=== PATIENT | female | born 1995 | race Caucasian/White ===

== ENCOUNTER 2017-02-06 10:56 | Inpatient (IN) | payer MEDICAID ==
[2017-02-06] MEDS ORDERED: RINGERS SOLUTION,LACTATED 1,000 ML IV PRN ×2 (11:24)
[2017-02-06] MEDS ORDERED: RINGERS SOLUTION,LACTATED 300 ML IV ONE (11:24)
[2017-02-06] MEDS ORDERED: OXYTOCIN/NORMAL SALINE 20 UNIT/1,000 ML RTUINJ IV PRN ×2 (11:24→12:15)
[2017-02-06] MEDS ORDERED: OXYTOCIN/NORMAL SALINE 20 UNIT/1,000 ML RTUINJ ONE (11:28)
[2017-02-06] MEDS ORDERED: OXYTOCIN 10 UNIT/ML VIAL ONE (11:28)
[2017-02-06] MEDS ORDERED: MISOPROSTOL 0.2 MG TABLET ONE (11:28)
[2017-02-06] MEDS ORDERED: LIDOCAINE 1% INJ-PF (10 MG/ML) 30 ML SDV ONE (11:28)
[2017-02-06] MEDS ORDERED: PENICILLIN G-K 5 MILLION UNIT VIAL ONE (11:32)
[2017-02-06 11:46] LABS: APPEARANCE,URINE CLEAR; BILIRUBIN,URINE NEGATIVE (NEGATIVE); GLUCOSE, URINE NEGATIVE (NEGATIVE); KETONES,URINE NEGATIVE (NEGATIVE); LEUKOCYTE ESTERASE,URINE NEGATIVE (NEGATIVE); NITRITE,URINE NEGATIVE (NEGATIVE); PROTEIN,URINE NEGATIVE (NEGATIVE); URINE SPECIFIC GRAVITY 1.011; UROBILINOGEN,URINE NEGATIVE mg/dL (<2.0)
[2017-02-06 11:56] LABS: ABSOLUTE BASOPHILS # (AUTO) 0.1 10^3/uL (0.0-0.2); ABSOLUTE EOSINOPHILS # (AUTO) 0.1 10^3/uL (0.0-0.6); ABSOLUTE LYMPHOCYTES (AUTO) 2.1 10^3/uL (0.5-4.7); ABSOLUTE MONOCYTES (AUTO) 0.8 10^3/uL (0.1-1.4); ABSOLUTE NEUT (AUTO) 9.8 10^3/uL (1.7-8.2); BASOPHILS % (AUTO) 0.6 % (0-2); EOSINOPHILS % (AUTO) 0.9 % (0-6); HEMATOCRIT 34.5 % (36.0-47.0); HEMOGLOBIN 12.2 g/dL (12.0-15.5); HGB HCT DIFFERENCE 2.1; LYMPHOCYTES % (AUTO) 16.2 % (13-45); MEAN CORPUSCULAR HEMOGLOBIN 30.4 pg (27.0-33.4); MEAN CORPUSCULAR HGB CONC 35.3 g/dL (32.0-36.0); MEAN CORPUSCULAR VOLUME 86 fl (80-97); MONOCYTES % (AUTO) 5.9 % (3-13); RED BLOOD COUNT 4.01 10^6/uL (3.72-5.28); RED CELL DISTRIBUTION WIDTH 13.7 % (11.5-14.0); SEGMENTED NEUTROPHILS % (AUTO) 76.4 % (42-78); WHITE BLOOD COUNT 12.8 10^3/uL (4.0-10.5)
[2017-02-06 12:08] LABS: URINE BARBITURATES SCREEN NEGATIVE; URINE METHADONE SCREEN NEGATIVE; URINE OPIATES LOW NEGATIVE; URINE PHENCYCLIDINE SCREEN NEGATIVE
[2017-02-06] MEDS ORDERED: OXYCODONE-ACETAMINOPHEN 5-325 MG TABLET ONE (12:10)
[2017-02-06] MEDS ORDERED: DIPH/PERTUSS(ACELL)/TETANUS VAC/PF 0.5 ML SYR (>=10YO) IM PRN (12:15)
[2017-02-06] MEDS ORDERED: ACETAMINOPHEN WITH CODEINE #3 TABLET PO PRN (12:15)
[2017-02-06] MEDS ORDERED: PSEUDOEPHEDRINE HCL 30 MG TABLET PO PRN (12:15)
[2017-02-06] MEDS ORDERED: MISOPROSTOL 0.2 MG TABLET PR ONE (12:15)
[2017-02-06] MEDS ORDERED: DIPHENHYDRAMINE HCL 25 MG CAPSULE PO PRN (12:15)
[2017-02-06] MEDS ORDERED: PROMETHAZINE HCL INJ 25 MG/1 ML VIAL IV PRN (12:15)
[2017-02-06] MEDS ORDERED: PROMETHAZINE HCL 25 MG SUPP.RECT PR PRN (12:15)
[2017-02-06] MEDS ORDERED: GLYCERIN/WITCH HAZEL LEAF 1 EACH MED..PAD TP PRN (12:15)
[2017-02-06] MEDS ORDERED: PROMETHAZINE HCL 25 MG TABLET PO PRN (12:15)
[2017-02-06] MEDS ORDERED: ACETAMINOPHEN 650 MG SUPP.RECT PR PRN (12:15)
[2017-02-06] MEDS ORDERED: BENZOCAINE/MENTHOL AEROSOL SPRAY 56 ML TOP PRN (12:15)
[2017-02-06] MEDS ORDERED: MAGNESIUM HYDROXIDE SUSP 30 ML UDCUP PO PRN (12:15)
[2017-02-06] MEDS ORDERED: NA PHOS,M-B/NA PHOS,DI-BA (ADULT) 133 ML ENEMA PR PRN (12:15)
[2017-02-06] MEDS ORDERED: MEASLES,MUMPS&RUBELLA VACC/PF 0.5 ML VIAL SUBCUT PRN (12:15)
[2017-02-06] MEDS ORDERED: DIBUCAINE 1% OINTMENT 28 GM TP PRN (12:15)
[2017-02-06] MEDS: IBUPROFEN 800 MG TABLET PO SCH ×2 (13:41→22:02)
[2017-02-06] MEDS ORDERED: IBUPROFEN 800 MG TABLET ONE (13:43)
[2017-02-06] MEDS ORDERED: ENOXAPARIN SODIUM INJ 40 MG/0.4 ML DISP.SYRIN SUBCUT ONE (14:00)
[2017-02-06 14:01] LABS: PROTHROMBIN TIME 13.7 SEC (11.4-15.4)
[2017-02-06 14:02] LABS: PARTIAL THROMBOPLASTIN TIME 26.5 SEC (23.5-35.8)
[2017-02-06 14:13] LABS: CREATININE RESULT 0.53 mg/dL (0.52-1.25)
--- NOTE | 2017-02-06 14:15 | Admission Physical ---
Datetime Report Generated by CPN: 02/06/2017 14:15 CURRENT ADMISSION Hx Assessment: The History has been Reviewed and is Current Chief Complaint: Uterine Contractions Indication for Induction: Not Applicable Admit Plan: Admit to Unit; Initiate Labor Protocol ALLERGIES Medication Allergies: No Medication Allergies: No Known Allergies (02/06/2017) Medication Allergies: No Known Allergies (02/10/2016) Latex: No Latex Allergies Food Allergies: none Environmental Allergies: none OBSTETRICAL HISTORY EDC: 02/22/2017 00:00 : 4 Para: 3 Term: 0 : 3 SAB: 0 IAB: 0 Ectopic: 0 Livin Cesareans: 0 VBACs: 0 Multiple Births: 0 Gestational Diabetes: No Rh Sensitization: No Incompetent Cervix: No BARB: No Infertility: No ART Treatment: No Uterine Anomaly: No IUGR: No Hx Previous C/S: No Macrosomia: No Hx Loss/Stillborn: No PIH: No Hx : No Placenta Previa/Abruption: No Depression/PP Depression: Yes PTL/PROM: Yes Post Hemorrhage: Yes Current Procedures: Ultrasound; NST Obstetrical History Comments: Pt states all pregnancies were G3-PPH with no transfusion G4- current SEE RECORDS Alcohol: No Marijuana : No Cocaine: No Other Illicit Drugs: No Cigarettes: Current Everyday Smoker. [id number] Cigarette Frequency: > 10 per day Advised to Stop: Yes MEDICAL HISTORY Diabetes: No Blood Transfusion: No Pulmonary Disease (Asthma, TB): No Breast Disease: No Hypertension: No Help Desk Support Surgery: No Heart Disease: No Hosp/Surgery: Yes Autoimmune Disorder: No Anesthetic Complications: No Kidney Disease: No Abnormal Pap Smear: No Neuro/Epilepsy: No Psychiatric Disorders: No Other Medical Diseases: Yes Hepatitis/Liver Disease: No Significant Family History: No Varicosities/Phlebitis: No Trauma/Violence : No Thyroid Dysfunction: No Medical History Comments: lymphedema, fibromyalgia, clotting disorder, anxiety and depression on alta 2013 surgery for plates and screws in right tib/fib INFECTIOUS HISTORY Gonorrhea: No Genital Herpes: No Chlamydia: No Tuberculosis: No Syphilis: No Hepatitis: No HIV/AIDS Exposure: No Rash or Viral Illness: No HPV: No PHYSICAL EXAM General: Normal HEENT: Normal Neurologic: Normal Thyroid: Normal Heart: Normal Lungs: Normal Breast: Deferred Back: Normal Abdomen: Normal Genitourinary Exam: Normal Extremities: Normal DTRs: Normal Pelvic Type: Adequate Physical Exam Comments: pt out of control on admission, progressing quickly + GBS No meds x 4 days, Heparin, Cymbalta, will wait for record+ TCH VAGINAL EXAM Dilatation: 8 Effacement: 100 Station: -1 MEMBRANES Membranes: Intact FETUS A EGA: 37.5 Monitoring: External US Admit Comment: pt progressed quickly, anticipate , + GBS, Penicillin, IV started family at , obtain records from [facility], [facility] PLANS FOR LABOR AND DELIVERY Labor and Delivery: None Pain Management: None Feeding Preference: Formula Benefit of Breast Feed Discussed: Yes Circumcision: N/A INFORMED CONSENT Assignment: Lyric Arboleda MD Signature: with User ID: [email or web address] : with User ID: [email or web address]
[2017-02-06] MEDS: FERROUS SULFATE 325 MG TABLET PO SCH (17:48)
[2017-02-06] MEDS: DOCUSATE SODIUM 100 MG CAPSULE PO SCH (17:48)
[2017-02-06] MEDS: ACETAMINOPHEN WITH CODEINE #3 TABLET PO PRN (18:11)
[2017-02-06] MEDS: DULOXETINE HCL 30 MG CAPSULE.DR PO SCH (22:01)
[2017-02-06] MEDS: FAMOTIDINE 20 MG TABLET PO SCH (22:02)
[2017-02-07] MEDS: ACETAMINOPHEN WITH CODEINE #3 TABLET PO PRN ×3 (00:39→21:02)
[2017-02-07] MEDS: IBUPROFEN 800 MG TABLET PO SCH ×3 (06:01→21:01)
[2017-02-07 08:02] LABS: HEMATOCRIT 34.7 % (36.0-47.0); HEMOGLOBIN 12.1 g/dL (12.0-15.5); HGB HCT DIFFERENCE 1.6; MEAN CORPUSCULAR HEMOGLOBIN 30.3 pg (27.0-33.4); MEAN CORPUSCULAR HGB CONC 34.8 g/dL (32.0-36.0); MEAN CORPUSCULAR VOLUME 87 fl (80-97); RED BLOOD COUNT 3.98 10^6/uL (3.72-5.28); RED CELL DISTRIBUTION WIDTH 13.6 % (11.5-14.0); WHITE BLOOD COUNT 12.3 10^3/uL (4.0-10.5)
[2017-02-07 08:08] LABS: PROTHROMBIN TIME 12.8 SEC (11.4-15.4)
[2017-02-07 08:09] LABS: PARTIAL THROMBOPLASTIN TIME 28.8 SEC (23.5-35.8)
[2017-02-07] MEDS: ENOXAPARIN SODIUM INJ 40 MG/0.4 ML DISP.SYRIN SUBCUT SCH (10:19)
[2017-02-07] MEDS: SENNOSIDES/DOCUSATE 8.6-50 MG 1 EACH TABLET PO SCH (10:21)
[2017-02-07] MEDS: FERROUS SULFATE 325 MG TABLET PO SCH ×2 (10:21→17:37)
[2017-02-07] MEDS: PRENATAL VITAMIN W-O CA NO5/FE FUMARATE/FA CAPSULE PO SCH (10:21)
[2017-02-07] MEDS: DOCUSATE SODIUM 100 MG CAPSULE PO SCH ×2 (10:22→17:38)
[2017-02-07] MEDS: FAMOTIDINE 20 MG TABLET PO SCH ×2 (10:22→21:04)
--- NOTE | 2017-02-07 10:53 | PDOC PROGRESS REPORT ---
Subjective-OB Subjective: Post Delivery Day: 21 year old. Denies any needs at this time Physical Exam (OB) Vital Signs: Temp Pulse Resp BP Pulse Ox 98.0 F 70 15 124/84 99 02/07/17 07:54 02/07/17 07:54 02/07/17 07:54 02/07/17 07:54 02/07/17 07:54 Intake & Output 02/06/17 02/07/17 02/08/17 06:59 06:59 06:59 Weight 85.2 kg - PIH/Pre-Eclampsia DTR's: 2 + Clonus: Negative Headache: Absent Epigastric Pain: No Visual Changes: No - Lochia Lochia Amount: Small 10-25 ml Lochia Color: Rubra/Red - Abdomen Description: Soft, Round Hernia Present: No Bowel Sounds: Normoactive Flatus Presence: Present Stool: No Fundal Description: Firm, Midline Fundal Height: u/u - u/2 Objective-Diagnostic Laboratory: 02/07/17 07:46 02/06/17 13:21 02/06/17 02/06/17 02/06/17 11:09 11:46 11:46 WBC 12.8 H RBC 4.01 Hgb 12.2 Hct 34.5 L MCV 86 MCH 30.4 MCHC 35.3 RDW 13.7 Plt Count 202 Seg Neutrophils % 76.4 Lymphocytes % 16.2 Monocytes % 5.9 Eosinophils % 0.9 Basophils % 0.6 Absolute Neutrophils 9.8 H Absolute Lymphocytes 2.1 Absolute Monocytes 0.8 Absolute Eosinophils 0.1 Absolute Basophils 0.1 Creatinine Est GFR ( Amer) Est GFR (Non-Af Amer) Urine Color YELLOW Urine Appearance CLEAR Urine pH 6.0 Ur Specific Ione 1.011 Urine Protein NEGATIVE Urine Glucose (UA) NEGATIVE Urine Ketones NEGATIVE Urine Blood NEGATIVE Urine Nitrite NEGATIVE Ur Leukocyte Esterase NEGATIVE Blood Type B POSITIVE Antibody Screen NEGATIVE 02/06/17 02/07/17 13:21 07:46 WBC 12.3 H RBC 3.98 Hgb 12.1 Hct 34.7 L MCV 87 MCH 30.3 MCHC 34.8 RDW 13.6 Plt Count 199 Seg Neutrophils % Lymphocytes % Monocytes % Eosinophils % Basophils % Absolute Neutrophils Absolute Lymphocytes Absolute Monocytes Absolute Eosinophils Absolute Basophils Creatinine 0.53 Est GFR ( Amer) > 60 Est GFR (Non-Af Amer) > 60 Urine Color Urine Appearance Urine pH Ur Specific Ione Urine Protein Urine Glucose (UA) Urine Ketones Urine Blood Urine Nitrite Ur Leukocyte Esterase Blood Type Antibody Screen
[2017-02-07] MEDS ORDERED: ZOLPIDEM TARTRATE 5 MG TABLET PO PRN (20:46)
[2017-02-07] MEDS: DULOXETINE HCL 30 MG CAPSULE.DR PO SCH (21:01)
[2017-02-08] MEDS: ACETAMINOPHEN WITH CODEINE #3 TABLET PO PRN (04:18)
[2017-02-08] MEDS: IBUPROFEN 800 MG TABLET PO SCH (05:14)
[2017-02-08 08:38] VITALS: BP 130/86
--- NOTE | 2017-02-08 08:53 | PDOC PROGRESS REPORT ---
Subjective-OB Subjective: Post Delivery Day: 21 year old. Denies any needs at this time Doing well, no c/o Physical Exam (OB) Vital Signs: Temp Pulse Resp BP Pulse Ox 97.7 F 56 L 16 130/86 H 100 02/08/17 08:04 02/08/17 08:04 02/08/17 08:04 02/08/17 08:04 02/08/17 08:04 Intake & Output 02/07/17 02/08/17 02/09/17 06:59 06:59 06:59 Weight 85.2 kg - PIH/Pre-Eclampsia DTR's: 2 + Clonus: Negative Headache: Absent Epigastric Pain: No Visual Changes: No - Lochia Lochia Amount: Small 10-25 ml Lochia Color: Rubra/Red - Abdomen Description: Soft, Round Hernia Present: No Fundal Description: Firm, Midline Fundal Height: u/u - u/2 Objective-Diagnostic Laboratory: 02/07/17 07:46 02/06/17 13:21 Assessment and Plan(PN) - Time Spent with Patient Time with patient: Less than 15 minutes Smoking Education Provided: Over 3 minutes Medications reviewed and adjusted accordingly: Yes - Disposition Anticipated Discharge: Home Within: Other - home today
--- NOTE | 2017-02-08 09:00 | PDOC DISCHARGE SUMMARY ---
Final Diagnosis Discharge Date: 02/08/17 Discharge Data - Discharge Medication Home Medications: Vits96/Iron Fum/Folic [ Tablet] 1 tab PO DAILY 08/06/14 Citalopram Hydrobromide [Celexa 10 mg Tablet] 1 tab PO DAILY 02/10/16 Enoxaparin Sodium [Lovenox Inj 40 mg/0.4 ml Disp.syrin] 40 mg SUBCUT DAILY #30 disp.syrin 02/08/17 Reason(s) for Admission: Onset of Labor, Group B Strep Positive Procedures: NST, Ultrasound Intrapartum Procedure(s): Spontaneous Vaginal Delivery - Diagnosis Test Laboratory: Temp Pulse Resp BP Pulse Ox 97.7 F 56 L 16 130/86 H 100 02/08/17 08:04 02/08/17 08:04 02/08/17 08:04 02/08/17 08:04 02/08/17 08:04 02/06/17 02/06/17 02/07/17 11:09 11:46 07:46 RBC 4.01 3.98 Hgb 12.2 12.1 Hct 34.5 L 34.7 L Urine Opiates Screen NEGATIVE - Discharge information/Instructions Discharge Activity: Activity As Tolerated, No Lifting Over 10 Pounds, No Lifting /Push/Pulling, Pelvic Rest Discharge Diet: As Tolerated, Regular Disposition: HOME, SELF-CARE Follow up with: [facility] in: 4, Weeks
[2017-02-08] MEDS: SENNOSIDES/DOCUSATE 8.6-50 MG 1 EACH TABLET PO SCH (09:37)
[2017-02-08] MEDS: FERROUS SULFATE 325 MG TABLET PO SCH (09:37)
[2017-02-08] MEDS: PRENATAL VITAMIN W-O CA NO5/FE FUMARATE/FA CAPSULE PO SCH (09:37)
[2017-02-08] MEDS: FAMOTIDINE 20 MG TABLET PO SCH (09:37)
[2017-02-08] MEDS: ENOXAPARIN SODIUM INJ 40 MG/0.4 ML DISP.SYRIN SUBCUT SCH (09:37)
[2017-02-08] MEDS: DOCUSATE SODIUM 100 MG CAPSULE PO SCH (12:06)
--- NOTE | 2017-02-12 10:01 | Delivery Summary ---
Del Sum A-C Datetime Report Generated by CPN: 02/12/2017 10:01 DELIVERY PERSONNEL DELIVERY PERSONNEL: [id number] Delivery Doctor:: Ketty Gallo CNM Labor and Delivery Nurse:: Bette Nunez RNanimal care attendant Nurse:: Bernie Crowder RN Nursery Nurse:: Alberto Don RN Student Observers:: Alva Mathew Payroll Benefits Administrator/WATCHSTANDER: Jaymie Walls, ST MATERNAL INFORMATION Delivery Anesthesia: None Medications After Delivery: Pitocin Bolus-Please Comment Meds After Delivery Comment: Pitocin 20 units in 1 L NS bolusing per order Estimated Blood Loss (ml): 400 Maternal Complications: Precipitous Labor (<3hrs) Provider Comments: pt arrived 8cm, arom, light mec, stated pushing, viable female ffom OA to RADHA over intact perineum, suctioned and placed on mothers abd, cord clamped and cut after 3 minutes. Spont delivery of grossly normal intact placenta, 3 VC, EBL = 400cc, baby and mom in recovery in stable condition, cytotec 600mcg via rectum, pt out of control during delivery LABOR SUMMARY EDC: 02/22/2017 00:00 No. Babies in Womb: 1 Attempted: No Labor Anesthesia: None LABOR INFORMATION Reason for Induction: Not Applicable Onset of Labor: 02/06/2017 10:30 Complete Dilatation: 02/06/2017 11:41 Oxytocin: N/A Group B Beta Strep: positive Antibiotics # of Doses: 1 Antibiotics Time of Last Dose: 1130 Name of Antibiotic Given: pcn Steroids Given: None Reason Steroids Not Administered: Not Applicable MEMBRANES Membranes Rupture Method: Artificial Rupture of Membranes: 02/06/2017 11:39 Length of Rupture (hr): 0.25 Amniotic Fluid Color: Light Meconium Amniotic Fluid Amount: Small Amniotic Fluid Odor: Normal STAGES OF LABOR Stage 1 hr: 1 Stage 1 min: 11 Stage 2 hr: 0 Stage 2 min: 13 Stage 3 hr: 0 Stage 3 min: 6 Total Time in Labor hr: 1 Total Time in Labor min: 30 VAGINAL DELIVERY Episiotomy: None Laceration Extension: N/A Laceration Type: Vaginal Other Laceration: Superficial vaginal tear Laceration Repair: No Sponge Count Correct: N/A Sharps Count Correct: N/A CSECTION DELIVERY Primary Indication: N/A Secondary Indication: N/A CSection Incidence: N/A Labor: N/A Elective: N/A BABY A INFORMATION Infant Delivery Date/Time: 02/06/2017 11:54 Method of Delivery: Vaginal Born in Route : No : N/A Forceps: N/A Vacuum Extraction: N/A Shoulder Dystocia : No PRESENTATION/POSITION BABY A Presentation: Cephalic Cephalic Presentation: Vertex Vertex Position: Right Occipital Anterior Breech Presentation: N/A PLACENTA INFORMATION BABY A Placenta Delivery Time : 02/06/2017 12:00 Placenta Method of Delivery: Spontaneous Placenta Status: Delivered SCORES BABY A Heart Rate 1 min: >100 bpm Resp Effort 1 min: Good Cry Reflex Irritability 1 min: Cough or Sneeze or Pulls Away Muscle Tone 1 min: Some Flexion of Extremities Color 1 min: Blue/Pale Resuscitation Effort 1 min: Tactile Stimulation SCORE 1 MIN: 7 Heart Rate 5 min: >100 bpm Resp Effort 5 min: Good Cry Reflex Irritability 5 min: Cough or Sneeze or Pulls Away Muscle Tone 5 min: Active Motion Color 5 min: Blue/Pale Resuscitation Effort 5 min: PPV/NCPAP SCORE 5 MIN: 8 INFORMATION BABY A Gestational Age at Delivery: 37.4 Gestational Status: Early Term- 37- 38.6 Weeks Outcome : Liveborn Infant Condition : Stable Infant Sex: Female IDENTIFICATION BABY A Infant Verification Date/Time: 02/06/2017 12:19 ID Band Number: [id number] Mother's Name Verified: Yes RN Verifying Infant: Jovanny Nunez, STONE. B. Viv, US WEIGHT/LENGTH BABY A Infant Birthweight (gm): 3430 Infant Weight (lb): 7 Infant Weight (oz): 9 Length (in): 20.00 Length (cm): 50.80 CORD INFORMATION BABY A No. Cord Vessels: 3 Nuchal Cord : N/A Cord Blood Taken: Yes-For Storage (Mom's Blood type +) Suction: Mouth; Nose ASSESSMENT BABY A Complications: Meconium Skin to Skin: Yes Care By: Moe Don RN Transferred To: [facility] BABY B INFORMATION : N/A
== END 2017-02-08 12:05 | disposition home or self-care (01) | DRG 775 ==
LOC: LC 10:56 → LR 11:50 → 2S 14:14
PROVIDERS: ADMIT Obstetrics & Gynecology; ATTEND Obstetrics & Gynecology
PROC: 10E0XZZ Delivery of Products of Conception, External Approach (ICD-10-PCS; principal; 2017-02-06)
DX: O62.3 Precipitate labor (principal); O99.324 Drug use complicating childbirth; E72.12 Methylenetetrahydrofolate reductase deficiency; O99.284 Endocrine, nutritional and metabolic diseases complicating childbirth; O99.334 Smoking (tobacco) complicating childbirth; O99.824 Streptococcus B carrier state complicating childbirth; F17.210 Nicotine dependence, cigarettes, uncomplicated; F12.90 Cannabis use, unspecified, uncomplicated; I89.0 Lymphedema, not elsewhere classified; O26.893 Other specified pregnancy related conditions, third trimester; Z3A.37 37 weeks gestation of pregnancy; Z37.0 Single live birth
CPT/HCPCS: 36415; 80307; 81005; 82565; 85025; 85027; 85610; 85730; 86592; 86850; 86900; 86901; G0480; J1650; J2540; J2590; J3490

== ENCOUNTER 2018-10-24 16:54 | Emergency (ER) | payer MEDICAID ==
[2018-10-24 17:05] VITALS: BP 135/77
== END 2018-10-24 17:40 | disposition left against medical advice (07) ==
LOC: ER 16:54
DX: Z53.21 Procedure and treatment not carried out due to patient leaving prior to being seen by health care provider (principal)

== ENCOUNTER 2018-10-24 21:47 | Emergency (ER) | payer SELFPAY ==
[2018-10-24 22:42] VITALS: BP 128/78
[2018-10-24] MEDS ORDERED: ONDANSETRON 4 MG TAB.RAPDIS PO ONE (23:49)
[2018-10-24] MEDS ORDERED: ACETAMINOPHEN 325 MG TABLET PO ONE (23:49)
--- NOTE | 2018-10-24 23:52 | ER Document Report ---
ED Medical Screen (RME) - General Chief Complaint: Abdominal Pain Stated Complaint: BACK AND ABDOMINAL PAIN Time Seen by Provider: 10/24/18 23:47 Primary Care Provider: SKYE GARDNER MD [Primary Care Provider] - Follow up as needed Mode of Arrival: Ambulatory Information source: Patient Notes: 22-year-old female presents to ED for complaint of bilateral lower abdominal and back pain since a.m. She states she had a IUD inserted 1-05/22 to 2 years ago and is never had problems with the IUD until this morning. She states Sunday she had multiple positive home test and again today. She states she is never had any problems with the IUD in the past. But she is in a lot of pain at this time. She states she is having a brownish vaginal discharge at this time. I have greeted and performed a rapid initial assessment of this patient. A comprehensive ED assessment and evaluation of the patient, analysis of test results and completion of medical decision making process will be conducted by an additional ED providers. Dictation of this chart was performed using voice recognition software; therefore, there may be some unintended grammatical errors. TRAVEL OUTSIDE OF THE [place] IN LAST 30 DAYS: No - Related Data Allergies/Adverse Reactions: No Known Allergies Allergy (Verified 10/24/18 16:56) Past Medical History Neurological Medical History: Reports: Hx Migraine Psychiatric Medical History: Reports: Hx Depression Past Surgical History: Reports: Hx Orthopedic Surgery - ORIF right tib-fib fracture - Immunizations Hx Diphtheria, Pertussis, Tetanus Vaccination: Yes Physical Exam - Vital signs Vitals: Temp Pulse Resp BP Pulse Ox 98.4 F 74 17 128/78 H 97 10/24/18 22:41 10/24/18 22:41 10/24/18 22:41 10/24/18 22:41 10/24/18 22:41 Course - Vital Signs Vital signs: Temp Pulse Resp BP Pulse Ox 98.4 F 74 17 128/78 H 97 10/24/18 22:41 10/24/18 22:41 10/24/18 22:41 10/24/18 22:41 10/24/18 22:41 Doctor's Discharge - Discharge Referrals: SKYE GARDNER MD [Primary Care Provider] - Follow up as needed
[2018-10-25 00:45] LABS: APPEARANCE,URINE SLIGHTLY-CLOUDY; BILIRUBIN,URINE NEGATIVE (NEGATIVE); COLOR,URINE YELLOW; GLUCOSE, URINE NEGATIVE (NEGATIVE); KETONES,URINE NEGATIVE (NEGATIVE); LEUKOCYTE ESTERASE,URINE NEGATIVE (NEGATIVE); NITRITE,URINE NEGATIVE (NEGATIVE); PROTEIN,URINE NEGATIVE (NEGATIVE); URINE SPECIFIC GRAVITY 1.019; UROBILINOGEN,URINE NEGATIVE mg/dL (<2.0)
[2018-10-25 00:59] LABS: ABSOLUTE BASOPHILS # (AUTO) 0.1 10^3/uL (0.0-0.2); ABSOLUTE EOSINOPHILS # (AUTO) 0.4 10^3/uL (0.0-0.6); ABSOLUTE LYMPHOCYTES (AUTO) 3.5 10^3/uL (0.5-4.7); ABSOLUTE MONOCYTES (AUTO) 0.8 10^3/uL (0.1-1.4); ABSOLUTE NEUT (AUTO) 6.1 10^3/uL (1.7-8.2); BASOPHILS % (AUTO) 0.6 % (0-2); EOSINOPHILS % (AUTO) 3.5 % (0-6); HEMATOCRIT 44.6 % (36.0-47.0); HEMOGLOBIN 15.4 g/dL (12.0-15.5); LYMPHOCYTES % (AUTO) 32.7 % (13-45); MEAN CORPUSCULAR HEMOGLOBIN 29.7 pg (27.0-33.4); MEAN CORPUSCULAR HGB CONC 34.5 g/dL (32.0-36.0); MEAN CORPUSCULAR VOLUME 86 fl (80-97); MONOCYTES % (AUTO) 6.9 % (3-13); PLATELET COUNT 259 10^3/uL (150-450); RED BLOOD COUNT 5.18 10^6/uL (3.72-5.28); RED CELL DISTRIBUTION WIDTH 13.7 % (11.5-14.0); SEGMENTED NEUTROPHILS % (AUTO) 56.3 % (42-78); TOTAL CELLS COUNTED % (AUTO) 100 %; WHITE BLOOD COUNT 10.8 10^3/uL (4.0-10.5)
[2018-10-25 01:14] LABS: ALANINE AMINOTRANSFERASE 19 U/L (9-52); ALBUMIN 4.5 g/dL (3.5-5.0); ALKALINE PHOSPHATASE 37 U/L (38-126); ANION GAP 11 (5-19); ASPARTATE AMINO TRANSFERASE 16 U/L (14-36); BILIRUBIN,DIRECT 0.2 mg/dL (0.0-0.4); BILIRUBIN,TOTAL 0.5 mg/dL (0.2-1.3); BLOOD UREA NITROGEN 20 mg/dL (7-20); CALCIUM 9.9 mg/dL (8.4-10.2); CARBON DIOXIDE 26 mmol/L (22-30); CHLORIDE 110 mmol/L (98-107); POTASSIUM 4.2 mmol/L (3.6-5.0); SODIUM 147.3 mmol/L (137-145)
[2018-10-25] MEDS ORDERED: HYDROCODONE/ACETAMINOPHEN 5-325 MG TABLET PO ONE (01:16)
[2018-10-25 01:25] LABS: GLUCOSE 65 mg/dL (75-110)
--- NOTE | 2018-10-25 01:25 | ER Document Report ---
ED GI/ - General Chief Complaint: Abdominal Pain Stated Complaint: BACK AND ABDOMINAL PAIN Time Seen by Provider: 10/24/18 23:47 Primary Care Provider: SKYE GARDNER MD [ACTIVE STAFF] - Follow up as needed Mode of Arrival: Ambulatory Notes: Patient is a 22-year-old female that comes to the emergency department for chief complaint of several positive home test and vaginal bleeding that started this morning but now has stopped. She states she has an IUD in place, Mirena which was placed almost 2 years ago. She has completed 4 pregnancies prior. She reports cramping in her lower abdomen, worse on the left side. She denies vomiting, fever, vaginal discharge. TRAVEL OUTSIDE OF THE [place] IN LAST 30 DAYS: No - Related Data Allergies/Adverse Reactions: No Known Allergies Allergy (Verified 10/25/18 07:13) Past Medical History - General Information source: Patient - Social History Smoking Status: Never Smoker Drug Abuse: None Lives with: Family Family History: Reviewed & Not Pertinent Neurological Medical History: Reports: Hx Migraine Psychiatric Medical History: Reports: Hx Depression Past Surgical History: Reports: Hx Orthopedic Surgery - ORIF right tib-fib fracture - Immunizations Hx Diphtheria, Pertussis, Tetanus Vaccination: Yes Review of Systems - Review of Systems Constitutional: No symptoms reported EENT: No symptoms reported Cardiovascular: No symptoms reported Respiratory: No symptoms reported Gastrointestinal: See HPI Genitourinary: See HPI Female Genitourinary: See HPI Musculoskeletal: No symptoms reported Skin: No symptoms reported Hematologic/Lymphatic: No symptoms reported Neurological/Psychological: No symptoms reported Physical Exam - Vital signs Vitals: Temp Pulse Resp BP Pulse Ox 98.4 F 74 17 128/78 H 97 10/24/18 22:41 10/24/18 22:41 10/24/18 22:41 10/24/18 22:41 10/24/18 22:41 - Notes Notes: GENERAL: Alert, interacts well. No acute distress. HEAD: Normocephalic, atraumatic. EYES: Pupils equal, round, and reactive to light. Extraocular movements intact. ENT: Oral mucosa moist, tongue midline. Oropharynx unremarkable. Airway patent. LUNGS: Clear to auscultation bilaterally, no wheezes, rales, or rhonchi. No respiratory distress. HEART: Regular rate and rhythm. No murmur ABDOMEN: There is mild generalized lower abdominal tenderness bilaterally, no guarding or rigidity, no rebound tenderness. Non-distended. Bowel sounds present in all 4 quadrants. GENITOURINARY: Deferred EXTREMITIES: Moves all 4 extremities spontaneously. No edema, normal radial and dorsalis pedis pulses bilaterally. No cyanosis. BACK: no cervical, thoracic, lumbar midline tenderness. No saddle anesthesia, normal distal neurovascular exam. Moves all extremities in full range of motion. NEUROLOGICAL: Alert and oriented x3. Normal speech. Cranial nerves II through XII grossly intact. PSYCH: Normal affect, normal mood. SKIN: Warm, dry, normal turgor. No rashes or lesions noted. Course - Re-evaluation Re-evalutation: Patient is well-appearing and alert, her vital signs are unremarkable. Her abdomen shows mild tenderness in the bilateral abdominal pelvic areas without guarding. Reviewed work-up from triage. CBC unremarkable, chemistry unremarkable except for hyperglycemia, urinalysis unremarkable. Patient has not eaten in a while, she was given nourishment, hypoglycemia resolved. hCG is actually negative. Ultrasound showing IUD in correct placement, no acute findings. No free fluid. No vaginal discharge or reported concerns of STD. I discussed with patient, patient is very pleased with the results. Provided with Toradol for pain at home, discussed imaging on follow-up because of breakthrough bleeding with her Mirena, discussed return precautions. Patient states satisfaction agreement. Stable at time of discharge. - Vital Signs Vital signs: Temp Pulse Resp BP Pulse Ox 97.6 F 61 16 128/78 H 98 10/25/18 02:21 10/25/18 02:21 10/25/18 02:21 10/24/18 22:41 10/25/18 02:21 - Laboratory Result Diagrams: 10/25/18 00:43 10/25/18 00:43 Laboratory results interpreted by me: 10/24/18 10/25/18 10/25/18 22:40 00:43 00:43 WBC 10.8 H Sodium 147.3 H Chloride 110 H Glucose 65 L Alkaline Phosphatase 37 L Urine Blood SMALL H Discharge - Discharge Clinical Impression: Vaginal bleeding, Abdominal cramping Condition: Stable Disposition: HOME, SELF-CARE Additional Instructions: You are having breakthrough bleeding while on the Mirena. This may continue, if it continues and becomes severely symptomatic you may need to discuss altern atives with your TESTER WAFER SUBSTRATE. Take the Toradol for pain if needed. Drink plenty of fluids. Your IUD appears to be in the appropriate position without complication. Your test is negative. Return if you worsen including vomiting, severe worsening pain, fever, heavy bleeding/passing out, or any other concerning symptoms. Prescriptions: Ketorolac Tromethamine [Toradol 10 mg Tablet] 10 mg PO Q8HP PRN #24 tablet PRN Reason: Forms: Return to Work Referrals: SKYE GARDNER MD [ACTIVE STAFF] - Follow up as needed
--- NOTE | 2018-10-25 03:46 | RADIOLOGY REPORT (SQ) ---
EXAM DESCRIPTION: US PELVIS TRANSVAGINAL COMPLETED DATE/TME: 10/24/2018 23:48 CLINICAL HISTORY: 22 years Female, pos home preg, vaginal bleed IUD Comparison: None. Technique: Transvaginal. LIMITATIONS: None. FINDINGS: 9-cm uterus, adequate appearing IUD, 0.2-cm endometrial stripe thickness, 2.5-cm right ovary, and nonvisualized left ovary appear otherwise unremarkable in size, shape, echotexture, and vascularity. No free fluid. IMPRESSION: 1. No acute findings. 2. IUD. 3. Endometrial hypoplasia. 4. Left ovary not visualized.
== END 2018-10-25 05:16 | disposition home or self-care (01) ==
LOC: ER 21:47
DX: R10.9 Unspecified abdominal pain (principal); N93.8 Other specified abnormal uterine and vaginal bleeding; Z97.5 Presence of (intrauterine) contraceptive device
CPT/HCPCS: 99283; 86900; 86901; 36415; 87086; 82962; 84702; 85025; 80053; 81001; 76830; 93976; S0119

== ENCOUNTER 2019-02-10 09:07 | Emergency (ER) | payer SELFPAY ==
[2019-02-10 09:29] VITALS: BP 128/80
[2019-02-10] MEDS ORDERED: PENICILLIN V POTASSIUM 500 MG TABLET PO ONE (09:34)
[2019-02-10] MEDS ORDERED: LIDOCAINE 2% VISCOUS SOLN 20 ML UDCUP PO ONE (09:34)
[2019-02-10] MEDS ORDERED: KETOROLAC TROMETHAMINE 60 MG/2 ML SDV IM ONE (09:34)
[2019-02-10] MEDS ORDERED: ONDANSETRON ODT 4 MG TAB (6 TAB/ER DISP) PO PRN (09:35)
--- NOTE | 2019-02-10 09:37 | ER Document Report ---
HPI - HPI Time Seen by Provider: 02/10/19 09:14 Pain Level: 4 Context: Patient is a 23-year-old female who presents the emergency department with a chief complaint of tooth pain to tooth #17. She states that she has had her pain on and off for the past few days and her pain got worse last night. She has always had a problem with this tooth for the past couple of years, but states that she was always and could not have her tooth extracted. She has tried ibuprofen, Tylenol, and Aleve to help with the pain, but has not had any relief. Denies any fevers, chills, body aches. States that she felt some draining to the left side of her mouth. - CONSTITUTIONAL Constitutional: DENIES: Fever, Chills - EENT EENT: DENIES: Sore Throat, Ear Pain Notes: tooth pain to tooth #17 - NEURO Neurology: DENIES: Headache, Weakness - CARDIOVASCULAR Cardiovascular: DENIES: Chest pain - RESPIRATORY Respiratory: DENIES: Trouble Breathing, Coughing - GASTROINTESTINAL Gastrointestinal: DENIES: Abdominal Pain - REPRODUCTIVE Reproductive: DENIES: : - DERM Skin Color: Normal Skin Problems: None Past Medical History - Social History Smoking Status: Current Every Day Smoker Chew tobacco use (# tins/day): No Frequency of alcohol use: None Drug Abuse: None Family History: Reviewed & Not Pertinent Patient has suicidal ideation: No Patient has homicidal ideation: No Neurological Medical History: Reports: Hx Migraine Renal/ Medical History: Denies: Hx Peritoneal Dialysis Psychiatric Medical History: Reports: Hx Depression - Anxiety Past Surgical History: Reports: Hx Orthopedic Surgery - ORIF right tib-fib fracture - Immunizations Hx Diphtheria, Pertussis, Tetanus Vaccination: Yes Vertical Provider Document - CONSTITUTIONAL Agree With Documented VS: Yes Exam Limitations: No Limitations General Appearance: No Apparent Distress - INFECTION CONTROL TRAVEL OUTSIDE OF THE [place] IN LAST 30 DAYS: No - HEENT HEENT: Atraumatic, Normocephalic, PERRLA - NECK Neck: Normal Inspection, Supple. negative: Lymphadenopathy-Left, Lymphadenopathy-Right - RESPIRATORY Respiratory: Breath Sounds Normal, No Respiratory Distress - CARDIOVASCULAR Cardiovascular: Regular Rate, Regular Rhythm Pulses: Normal: Radial - MUSCULOSKELETAL/EXTREMETIES Musculoskeletal/Extremeties: FROM - NEURO Level of Consciousness: Awake, Alert, Appropriate Motor/Sensory: No Motor Deficit, No Sensory Deficit - DERM Integumentary: Warm, Dry, No Rash Course - Re-evaluation Re-evalutation: 02/10/19 09:39 Patient's physical exam and history is most consistent with a infected tooth. Patient is able to swallow, no facial swelling noted, airway is patent, vital signs are normal. I do not suspect Alex's angina, peritonsilar abscess, or airway obstruction. The patient will be started on oral antibiotics. I have given the patient education on their antibiotics. Patient was given instructions to follow-up with a dentist this week. Return precautions were given. Verbal discharge instructions were given. Patient verbalized understanding. Patient is stable for discharge. - Vital Signs Vital signs: Temp Pulse Resp BP Pulse Ox 98.5 F 91 128/80 H 100 02/10/19 09:27 02/10/19 09:27 02/10/19 09:27 02/10/19 09:27 Discharge - Discharge Clinical Impression: Toothache Condition: Stable Disposition: HOME, SELF-CARE Instructions: Penicillin V K ([facility]), Toothache ([facility]) Additional Instructions: You have been seen in the emergency department for a toothache. You may take ibuprofen 600 mg and Tylenol 1000 mg every 6 hours as needed for the pain. You have also been given topical lidocaine. Placed that to the affected tooth as needed to help with pain. You have also been prescribed antibiotics. Please take the antibiotics as prescribed, even if you start to feel better. If you develop a fever greater than 100.4 F, or have any symptoms that are worrisome to you, please return to the emergency department. Please follow-up with a dentist this week in regards to your visit. You are also being sent home with Laura nausea medication. You can take 1 tablet every 4-6 hours as needed. Please follow-up with [facility]. Call them today to make an appointment. Cut back 1 cigarette a week and in 20 weeks you will be free from smoking. Prescriptions: Penicillin V Potassium [Penicillin Vk 500 mg Tablet] 500 mg PO QID #20 tablet Forms: Smoking Cessation Education Referrals: [facility] [Provider Group] - Follow up in 1 week
== END 2019-02-10 09:51 | disposition home or self-care (01) ==
LOC: ER 09:07
DX: K08.89 Other specified disorders of teeth and supporting structures (principal); F17.200 Nicotine dependence, unspecified, uncomplicated
CPT/HCPCS: 99282; 96374; J1885; J3490

== ENCOUNTER 2019-03-09 08:57 | Emergency (ER) | payer SELFPAY ==
[2019-03-09 09:02] VITALS: BP 132/78
[2019-03-09] MEDS ORDERED: KETOROLAC TROMETHAMINE 60 MG/2 ML SDV IM ONE (10:09)
[2019-03-09] MEDS ORDERED: HYDROCODONE/ACETAMINOPHEN 5-325 MG (6 TAB/ER DISP) PO PRN (10:14)
--- NOTE | 2019-03-09 10:15 | ER Document Report ---
HPI - HPI Patient complains to provider of: dental pain Time Seen by Provider: 03/09/19 09:49 Onset: Other Onset/Duration: Persistent Quality of pain: Achy, Throbbing Severity: Severe Pain Level: 4 Context: This 23-year-old female presents emergency department with complaints of pain to the left bottom molar. Reports she had a tooth pulled on Sunday by the dental clinic. She reports she is had pain since that time. Patient does smoke and has been smoking. She denies fever vomiting diarrhea. Reports she has been able to sleep due to the pain. Has not taken anything for pain. She reports that clinic did not give her anything. Patient speaking in a clear voice opens mouth wide without problems. Associated Symptoms: None Exacerbated by: Denies Relieved by: Denies Similar symptoms previously: Yes Recently seen / treated by doctor: Yes - REPRODUCTIVE Reproductive: DENIES: : Past Medical History - General Information source: Patient Last Menstrual Period: IUD - Social History Smoking Status: Current Every Day Smoker Cigarette use (# per day): Yes Chew tobacco use (# tins/day): No Frequency of alcohol use: None Drug Abuse: None Occupation: [employer] Family History: Reviewed & Not Pertinent Patient has suicidal ideation: No Patient has homicidal ideation: No Neurological Medical History: Reports: Hx Migraine Renal/ Medical History: Denies: Hx Peritoneal Dialysis Psychiatric Medical History: Reports: Hx Depression - Anxiety Past Surgical History: Reports: Hx Oral Surgery, Hx Orthopedic Surgery - ORIF right tib-fib fracture - Immunizations Hx Diphtheria, Pertussis, Tetanus Vaccination: Yes Vertical Provider Document - CONSTITUTIONAL Agree With Documented VS: Yes Exam Limitations: No Limitations General Appearance: WD/WN, No Apparent Distress - WINCES WHEN OPENING MOUTH - INFECTION CONTROL TRAVEL OUTSIDE OF THE [place] IN LAST 30 DAYS: No - HEENT HEENT: Atraumatic, Normocephalic. negative: Pharyngeal Erythema Mouth Diagram: 1 - empty socket, no erythema/discharge/swelling, opens mouth wide, no pustule, no ludwigs, clear voice - NECK Neck: Normal Inspection - RESPIRATORY Respiratory: No Respiratory Distress - CARDIOVASCULAR Cardiovascular: Regular Rate - MUSCULOSKELETAL/EXTREMETIES Musculoskeletal/Extremeties: JIGNESH HAIRSTON - NEURO Level of Consciousness: Awake, Alert, Appropriate - DERM Integumentary: Warm, Dry Course - Re-evaluation Re-evalutation: 03/09/19 10:21 23-year-old female with history of getting her tooth pulled on Sunday and having pain since that time. No obvious infection noted on exam. Concern for dry socket. Patient was instructed on the importance of not smoking not using straws, warm salt water gargles. She was also instructed on [place] Toradol and ibuprofen she was instructed to follow-up with her dentist as soon as possible. Patient reports she can only follow-up on Wednesdays. She was instructed to return here for worsening symptoms. Dictation of this chart was performed using voice recognition software; the refore, there may be some unintended grammatical errors. - Vital Signs Vital signs: Temp Pulse Resp BP Pulse Ox 98 F 82 18 132/78 H 97 03/09/19 09:01 03/09/19 09:01 03/09/19 09:01 03/09/19 09:01 03/09/19 09:01 Discharge - Discharge Clinical Impression: Pain, dental Condition: Stable Disposition: HOME, SELF-CARE Instructions: Ibuprofen (General) ([facility]), Oral Narcotic Medication ([facility]), Tor adol Injection ([facility]) Additional Instructions: *You have been evaluated for pain post tooth removal, dry socket *Take ibuprofen as prescribed - take norco for the acute pain *Warm salt water rinses, do not smoke do not use a straw, wash gently around the area with your toothbrush *Follow up with your dentist Sunday *Return to ED for worsening condition, changes, needs Monitor your blood pressure. Your blood pressure was elevated today. This may be because you were anxious, in pain or because you need medication. It is important to follow up with your primary care provider for full evaluation. Prescriptions: Ibuprofen [Motrin 800 mg Tablet] 800 mg PO TID #15 tablet Forms: Elevated Blood Pressure, Smoking Cessation Education
== END 2019-03-09 10:20 | disposition home or self-care (01) ==
LOC: ER 08:57
DX: K08.9 Disorder of teeth and supporting structures, unspecified (principal); F17.210 Nicotine dependence, cigarettes, uncomplicated; Z98.818 Other dental procedure status; Z97.5 Presence of (intrauterine) contraceptive device
CPT/HCPCS: 99282; 96372; J1885

== ENCOUNTER 2019-07-14 19:08 | Emergency (ER) | payer SELFPAY ==
[2019-07-14 19:19] VITALS: BP 111/68
[2019-07-14] MEDS ORDERED: IBUPROFEN 800 MG TABLET PO ONE (20:04)
--- NOTE | 2019-07-14 20:04 | ER Document Report ---
HPI - HPI Time Seen by Provider: 07/14/19 19:54 Pain Level: 3 Notes: Patient is a 23-year-old female who presents to the ED complaining of nasal congestion/discharge, dry nonproductive cough, fever, body ache 1-2 days. Patient states that she is still eating and drinking without difficulties. She is still urinating normally having normal bowel movements. Patient has been using some [id number] meds for symptoms. She denies any significant past medical history including cardiopulmonary history and immunocompromised conditions. Denies any current headache, neck pain, sore throat, chest pain, palpitations, syncope, shortness of breath, wheeze, dyspnea, abdominal pain, nausea/vomiting/diarrhea, urinary retention, dysuria, hematuria, or rash. - ROS Systems Reviewed and Negative: Yes All other systems reviewed and negative - REPRODUCTIVE Reproductive: DENIES: : Past Medical History - Social History Smoking Status: Current Every Day Smoker Family History: Reviewed & Not Pertinent Patient has suicidal ideation: No Patient has homicidal ideation: No Neurological Medical History: Reports: Hx Migraine Renal/ Medical History: Denies: Hx Peritoneal Dialysis Psychiatric Medical History: Reports: Hx Depression - Anxiety Past Surgical History: Reports: Hx Oral Surgery, Hx Orthopedic Surgery - ORIF right tib-fib fracture - Immunizations Hx Diphtheria, Pertussis, Tetanus Vaccination: Yes Vertical Provider Document - CONSTITUTIONAL Agree With Documented VS: Yes Notes: PHYSICAL EXAMINATION: GENERAL: Well-appearing, well-nourished and in no acute distress. A&Ox4. Answers questions appropriately. Moves comfortably w/o notable distress HEAD: Atraumatic, normocephalic. EYES: Pupils equal round and reactive to light, extraocular movements intact, sclera anicteric, conjunctiva are normal. ENT: Nares patent and with clear discharge. oropharynx no erythema without exudates. No tonsilar hypertrophy without erythema or exudate. No palatine shift. Uvula midline. No tongue protrusion. No drooling, hoarseness, or airway compromise. Moist mucous membranes. No sinus tenderness. NECK: Normal range of motion, supple without lymphadenopathy. No rigidity/meningismus. LUNGS: Breath sounds clear to auscultation bilaterally and equal. No wheezes rales or rhonchi. No retractions HEART: Regular rate and rhythm without murmurs, rubs, gallops. ABDOMEN: Soft, nontender, nondistended abdomen. No guarding, no rebound. Normal bowel sounds present. No CVA tenderness bilaterally. NEUROLOGICAL: Normal speech, normal gait. PSYCH: Normal mood, normal affect. SKIN: Warm, Dry, normal turgor, no rashes or lesions noted. - INFECTION CONTROL TRAVEL OUTSIDE OF THE [place] IN LAST 30 DAYS: No Course - Re-evaluation Re-evalutation: 07/14/19 20:06 Patient is an afebrile, well-hydrated, 23-year-old female who presents to the ED with acute URI, suspect viral/influenza. Vitals are acceptable. PE is otherwise unremarkable. No labs or imaging warranted at this time based on H&P. Patient has no significant cardiopulmonary or immunocompromised medical conditions. Patient's lungs are clear to auscultation bilaterally without tachycardia, hypoxia, or tachypnea. Patient is tolerating p.o. without any difficulties. Thoroughly reviewed the risks, benefits, potential side effects, estimated cost without insurance with patient. After thorough review, patient declined Tamiflu at this time. Motrin given PO. Low suspicion for any meningitis, sepsis, peritonsillar/pharyngeal abscess, respiratory compromise, severe dehydration, or other emergent systemic condition at this time. Patient is aware this condition can change from initial presentation and she needs to monitor symptoms closely. Conservative measures otherwise for symptoms. Recheck with your PCM in 3-5 days. Return to the ED with any worsening/concerning symptoms otherwise as reviewed in discharge. Patient is in agreement. - Vital Signs Vital signs: Temp Pulse Resp BP Pulse Ox 100.5 F H 125 H 20 111/68 07/14/19 19:17 07/14/19 19:17 07/14/19 19:17 07/14/19 19:17 Discharge - Discharge Clinical Impression: Acute URI Condition: Stable Disposition: HOME, SELF-CARE Instructions: Upper Respiratory Illness ([facility]) Additional Instructions: Maintain adequate fluid intake tylenol/ibuprofen as needed alternating every 3 hours for fever/body ache over the counter cold medication as needed for symptoms Humidified air may help Wash your hands regularly Wear a mask when coughing F/u: with your PCM in 3-5 days for a recheck Return to the ED with any fever, altered mental status/behavior, chest pain, palpitations, syncope, headache, neck pain/stiffness, shortness of breath, chest pains, wheezing, drooling, trouble swallowing/breathing, abdominal pain, n/v/d, rash, or worsening/concerning symptoms otherwise. Forms: Smoking Cessation Education Referrals: [facility] [Provider Group] - Follow up as needed
== END 2019-07-14 20:08 | disposition home or self-care (01) ==
LOC: ER 19:08
DX: J06.9 Acute upper respiratory infection, unspecified (principal); R09.81 Nasal congestion; R50.9 Fever, unspecified; M79.10 Myalgia, unspecified site; F17.200 Nicotine dependence, unspecified, uncomplicated
CPT/HCPCS: 99283

== ENCOUNTER 2019-07-22 13:36 | Emergency (ER) | payer SELFPAY ==
[2019-07-22] MEDS ORDERED: DIPHENHYDRAMINE HCL 50 MG/ML VIAL IV ONE (14:16)
[2019-07-22] MEDS ORDERED: ONDANSETRON 4 MG TAB.RAPDIS PO ONE (14:16)
[2019-07-22] MEDS ORDERED: METOCLOPRAMIDE HCL INJ/PF 10 MG/2 ML SDV IV ONE (14:16)
[2019-07-22] MEDS ORDERED: NORMAL SALINE 1000 ML 1,000 ML IV ONE (14:17)
--- NOTE | 2019-07-22 14:18 | ER Document Report ---
ED Medical Screen (RME) - General Chief Complaint: Headache Stated Complaint: HEADACHE Time Seen by Provider: 07/22/19 14:14 Notes: 23-year-old female presents with headache. Patient states she has a history of migraines but states that this feels differently than her usual migraine. Patient states she has had a headache for a week however is gotten worse the last 2 hours. Associated nausea/vomiting and photophobia/phonophobia. Neuro gr ossly intact, PERRLA, EOM intact, no facial droop, no tongue deviation. I have greeted and performed a rapid initial assessment of this patient. A comprehensive ED assessment and evaluation of the patient, analysis of test results and completion of the medical decision making process with be conducted by additional ED providers. TRAVEL OUTSIDE OF THE [place] IN LAST 30 DAYS: No - Related Data Allergies/Adverse Reactions: No Known Allergies Allergy (Verified 07/22/19 14:11) Past Medical History Neurological Medical History: Reports: Hx Migraine Renal/ Medical History: Denies: Hx Peritoneal Dialysis Psychiatric Medical History: Reports: Hx Depression - Anxiety Past Surgical History: Reports: Hx Oral Surgery, Hx Orthopedic Surgery - ORIF right tib-fib fracture - Immunizations Hx Diphtheria, Pertussis, Tetanus Vaccination: Yes Physical Exam - Vital signs Vitals: Temp Pulse Resp BP Pulse Ox 98.1 F 64 16 138/85 H 99 07/22/19 13:41 07/22/19 13:41 07/22/19 13:41 07/22/19 13:41 07/22/19 13:41 Course - Vital Signs Vital signs: Temp Pulse Resp BP Pulse Ox 98.1 F 64 16 138/85 H 99 07/22/19 13:41 07/22/19 13:41 07/22/19 13:41 07/22/19 13:41 07/22/19 13:41
--- NOTE | 2019-07-22 15:17 | RADIOLOGY REPORT (SQ) ---
EXAM DESCRIPTION: CT HEAD WITHOUT COMPLETED DATE/TIME: 07/22/2019 3:07 pm REASON FOR STUDY: left sided headache worse past 2 hours COMPARISON: None. TECHNIQUE: Axial images acquired through the brain without intravenous contrast. Images reviewed wi th bone, brain and subdural windows. Additional sagittal and coronal reconstructions were generated. Images stored on PACS. All CT scanners at this facility use dose modulation, iterative reconstruction, and/or weight based d osing when appropriate to reduce radiation dose to as low as reasonably achievable (ALARA). [facility]: Dose Right [facility]: CareDose [facility]: Dose Right [facility]: Teradose 4D [facility]: MetrixLab RADIATION DOSE: CT Rad equipment meets quality standard of care and radiation dose reduction techniq ues were employed. CTDIvol: 53.2 mGy. DLP: 1017 mGy-cm. mGy. LIMITATIONS: None. FINDINGS: VENTRICLES: Normal size and contour. CEREBRUM: No masses. No hemorrhage. No midline shift. No evidence for acute infarction. Normal gra y/white matter differentiation. No areas of low density in the white matter. CEREBELLUM: No masses. No hemorrhage. No alteration of density. No evidence for acute infarction. EXTRAAXIAL SPACES: No fluid collections. No masses. ORBITS AND GLOBE: No intra- or extraconal masses. Normal contour of globe without masses. CALVARIUM: No fracture. PARANASAL SINUSES: Diffuse fluid and mucous membrane thickening with almost complete opacification of the paranasal sinuses. SOFT TISSUES: No mass or hematoma. OTHER: No other significant finding. IMPRESSION: NORMAL BRAIN CT WITHOUT CONTRAST. DIFFUSE SINUS DISEASE. EVIDENCE OF ACUTE STROKE: NO. COMMENT: Quality ID # [id number]: Final reports with documentation of one or more dose reduction techniques (e.g., Automated exposure control, adjustment of the mA and/or kV according to patient size, use of iterative reconstruction technique) TECHNICAL DOCUMENTATION: JOB ID: [id number] 2010 [employer]- All Rights Reserved Reading location - IP/workstation name: [email or web address]
[2019-07-22] MEDS ORDERED: HYDROCODONE/ACETAMINOPHEN 5-325 MG TABLET PO ONE (16:13)
[2019-07-22] MEDS ORDERED: AMOXICILLIN TR/POT CLAVULANATE 500-125 MG TAB PO ONE (16:13)
[2019-07-22] MEDS ORDERED: KETOROLAC TROMETHAMINE INJ/PF 30 MG/1 ML SDV IV ONE (16:13)
--- NOTE | 2019-07-22 16:21 | ER Document Report ---
ED Headache - General Chief Complaint: Headache Stated Complaint: HEADACHE Time Seen by Provider: 07/22/19 14:14 Notes: HPI: Patient is a 23-year-old female that presents today with the onset around 10 days ago of some runny nose, congestion, and body aches. She was diagnosed with influenza. Patient states she has not had any fever for the last 4 days. She developed a headache around 1 week ago. It is mostly to the left side of the head. Patient states she has a history of chronic weekly headaches. She does not have a neurologist. She denies any blurry or double vision. No chest pain, cough, abdominal pain, or diarrhea. No weakness or numbness. ROS: See HPI All other review of systems reviewed and otherwise negative Reviewed vital signs and nursing note as charted by RN. PHYSICAL EXAM: CONSTITUTIONAL: Alert and oriented and responds appropriately to questions. Well-appearing; well-nourished HEAD: Normocephalic; atraumatic EYES: PERRL; full extraocular range of motion ENT: Normal nose; no rhinorrhea; tenderness to palpation of the left frontal and maxillary sinuses with no swelling, bogginess, or erythema; moist mucous membranes; pharynx without lesions noted NECK: Supple without meningismus; non-tender; no cervical lymphadenopathy, no masses CARD: Regular rate and rhythm; no murmurs; symmetric distal pulses RESP: Normal chest excursion without splinting or tachypnea; breath sounds clear and equal bilaterally ABD/GI: Normal bowel sounds; non-distended; soft, non-tender BACK: The back appears normal and is non-tender to palpation EXT: Normal ROM in all joints; non-tender to palpation; no edema SKIN: No acute lesions noted NEURO: CN 2-12 intact; 5/5 bilateral upper and lower extremity strength with sensation intact to light touch PSYCH: The patient's mood and manner are appropriate. Grooming and personal hygiene are appropriate. TRAVEL OUTSIDE OF THE [place] IN LAST 30 DAYS: No - Related Data Allergies/Adverse Reactions: No Known Allergies Allergy (Verified 07/22/19 14:11) Past Medical History - Social History Smoking Status: Unknown if Ever Smoked Family History: Reviewed & Not Pertinent Patient has suicidal ideation: No Patient has homicidal ideation: No Neurological Medical History: Reports: Hx Migraine Renal/ Medical History: Denies: Hx Peritoneal Dialysis Psychiatric Medical History: Reports: Hx Depression - Anxiety Past Surgical History: Reports: Hx Oral Surgery, Hx Orthopedic Surgery - ORIF right tib-fib fracture - Immunizations Hx Diphtheria, Pertussis, Tetanus Vaccination: Yes Physical Exam - Vital signs Vitals: Temp Pulse Resp BP Pulse Ox 98.1 F 64 16 138/85 H 99 07/22/19 13:41 07/22/19 13:41 07/22/19 13:41 07/22/19 13:41 07/22/19 13:41 Course - Re-evaluation Re-evalutation: Given the above history and physical, CT head was obtained. Patient has had no recent fevers, blurry vision, weakness or numbness. Tenderness to palpation of the sinuses. Copious nasal congestion. Given the above history and physical I do believe this is most likely a viral sinus type bacterial infection. CT scan of the head as recorded. Vital signs are stable. Fluids have been given. Patient's pain feels improved. Patient will be treated with a course of antibiotics with strict return precautions and hydration instructions. - Vital Signs Vital signs: Temp Pulse Resp BP Pulse Ox 98.1 F 64 16 138/85 H 99 07/22/19 13:41 07/22/19 13:41 07/22/19 13:41 07/22/19 13:41 07/22/19 13:41 Discharge - Discharge Clinical Impression: Nasal congestion Acute sinusitis Qualifiers: Sinusitis location: unspecified location Recurrence: not specified as recurrent Qualified Code(s): J01.90 - Acute sinusitis, unspecified Condition: Good Disposition: HOME, SELF-CARE Additional Instructions: Come back immediately with any facial swelling, loss of vision, double vision, weakness or numbness, confusion, difficulty breathing or swallowing, or any other acute problems. Please take the antibiotics as prescribed and follow-up with your primary care physician and stay well-hydrated as discussed. Prescriptions: Amoxicillin/Potassium Clav [Augmentin 875-125 Tablet] 1 tab PO BID #20 tab
[2019-07-22 16:57] VITALS: BP 111/75
== END 2019-07-22 17:05 | disposition home or self-care (01) ==
LOC: ER 13:36
DX: J01.90 Acute sinusitis, unspecified (principal); R51 Headache; M79.10 Myalgia, unspecified site
CPT/HCPCS: 99284; 96361; 96374; 96375; 36415; 84703; 70450; J1200; S0119; J1885; J2765; J7030